=== PATIENT | male | born 1965 | race Caucasian/White ===

== ENCOUNTER 2017-06-02 15:37 | Emergency (ER) | payer OTHER ==
[~2017-06-02] VITALS: Ht 172.7 cm; Wt 75.7 kg
[2017-06-02] MEDS ORDERED: GABAPENTIN TAB600 MG PO (15:47)
[2017-06-02] MEDS ORDERED: IBUPROFEN600 MG PO (15:48)
[2017-06-02] MEDS ORDERED: CYMBALTA60 MG PO (15:48)
[2017-06-02] MEDS ORDERED: HUMALOG KW200 UNIT/1 SQ (15:49)
[2017-06-02] MEDS ORDERED: HUMALOG100 UNIT/1 SQ (15:50)
[2017-06-02] MEDS ORDERED: LIPITOR20 MG PO (15:50)
[2017-06-02] MEDS ORDERED: PANTOPRAZOLE SO40 MG PO (15:51)
[2017-06-02] MEDS ORDERED: [UNRECOGNIZED DRUG - OTHER] PO (15:52)
[2017-06-02] MEDS ORDERED: NAPROSYN500 MG PO (15:59)
[2017-06-02] MEDS ORDERED: 'PARAFON FORTE500 M1 PO (15:59)
== END 2017-06-02 17:20 | disposition home or self-care (01) ==
LOC: ED 15:37
DX: M54.6 Pain in thoracic spine (principal); R03.0 Elevated blood-pressure reading, without diagnosis of hypertension; F17.200 Nicotine dependence, unspecified, uncomplicated; Z79.899 Other long term (current) drug therapy

== ENCOUNTER 2018-09-23 10:25 | Inpatient (IN) | payer MEDICARE, OTHER ==
[~2018-09-23] VITALS: Ht 172.7 cm; Wt 75.4 kg
--- NOTE | ~2018-09-23 | O ---
[place], [place] OPERATIVE NOTE NAME: [facility]: [id number] UNIT #: [id number] ROOM: 415 DOCTOR: ANNELIESE FISH DO BIRTHDATE: [birth year] DOS: PREPROCEDURE DIAGNOSIS: Right proximal calf abscess. POSTPROCEDURE DIAGNOSIS: Right proximal calf abscess. OPERATIVE PROCEDURE: Incision, drainage, debridement of right proximal calf abscess. SURGEON: Anneliese Fish DO. WATCHSTANDER: Hossein. ANESTHESIA: SUGAR Valentine, general with LMA intubation. INDICATIONS: The patient is a 53-year-old male who underwent a coronary artery bypass graft procedure in 03/2018. The veins were harvested from the legs. The right lower extremity suffered a compartment syndrome. The patient underwent fasciotomies. Approximately 2 weeks ago, the patient developed pain and swelling in the right proximal calf. He was treated at another facility with a drain placed under ultrasound guidance and followed by IV and p.o. antibiotics. The patient states he was progressing well, stepped off a curb, felt a pop in the calf, developed pain and swelling in the proximal calf. MRI indicated no specific tear in the gastrocs or Achilles region. Aspiration under ultrasound indicated a purulent appearing material with a negative Gram stain, negative, culture. The patient continued to have pain. We discussed incision, drainage, debridement and repeat cultures. Preoperative labs and x-rays were obtained. DESCRIPTION OF PROCEDURE: The right proximal calf was marked in the holding room. The patient was brought to the operative suite. A general anesthetic with LMA intubation was performed. The patient had a bump placed under the hip and the table tilted for better exposure of the right proximal calf. The right lower extremity was prepped from toes to groin. Tourniquet was applied at the right upper thigh. The extremity was elevated. The tourniquet was applied at 350 mmHg. The extremity was draped in a sterile orthopedic fashion. A 10 cm incision was made over the fluctuant mass in the right proximal calf. Subcutaneous tissue was spread down to the level of the fascia. The fascia was divided. There was noted to be thickened and scarred gastroc muscle. The Arrington scissors were used to open a firm capsule of fluctuance. Approximately 45 mL of a thin brown liquid were suctioned from the area. Some necrotic yellow tissue was also removed. The area was copiously irrigated with 3 liters of normal saline. Exploration of the cavity indicated the pocket was approximately twice the size of the incision. Cultures were obtained of the purulent material. When no further evidence of necrotic or purulent tissue was present, the skin was closed in a vertical mattress suture fashion. A Hector drain was placed. A dressing was used to complete the procedure using Adaptic, 4 x 4s, ABDs, cast padding, and an Rodney bandage from the metatarsal heads to the proximal tibial region. The tourniquet was released. The anesthetic was reversed. The patient was extubated and taken to the recovery room in satisfactory condition. [place], [place] OPERATIVE NOTE NAME: JANETTE CERVANTES UNIT #: [id number] ROOM: [facility] DOCTOR: ANNELIESE FISH DO BIRTHDATE: [birth year] Sponge and needle count correct. ESTIMATED BLOOD LOSS: 10 mL. DRAINS: One Hector drain. PACKING: None. SPECIMENS: Gram stain culture and sensitivity and soft tissue. FINDINGS: Abscess within the lateral head of the gastroc approximately 10 x 15 cm in length. ANNELIESE FISH DO CM:OPRECORD:OPERATIVE NOTE [id number] ANNELIESE FISH DO 09/26/18 1626 interface
--- NOTE | ~2018-09-23 | EKG ---
[place], [place] ELECTROCARDIOGRAM REPORT NAME: JANETTE CERVANTES UNIT #: [id number] ROOM: 415 DOCTOR: MEMO DRAFT REPORT BIRTHDATE: [birth year] [facility] Test Date: 2018-09-25 Test Time: 18:20:01 Pat Name: JANETTE CERVANTES Department: Room: 415 1 Gender: M Side Splitter: Antonia Newsome : 1965 Requested By: ANNELIESE TOURE Order Number: [id number] Reading MD: Lexx Fragoso MD Measurements Intervals [facility] Rate: 86 P: 63 SD: 198 QRS: 59 QRSD: 93 T: -14 QT: 385 QTc: 461 Interpretive Statements Sinus rhythm Probable left atrial enlargement Anteroseptal infarct, age indeterminate Lateral leads are also involved Baseline wander in lead(s) V1,V2 Electronically Signed On 09-26-2018 5:22:52 PST by Lexx Fragoso MD CM:EKGRPT:ELECTROCARDIOGRAM REPORT 19 0522 ANNELIESE DIAMOND DRAFT REPORT ANNELIESE TOURE DO
[2018-09-23 10:25] VITALS: BP 116/76
[~2018-09-23 10:25] MED LIST: 'PARAFON FORTE500 M1 PO; CYMBALTA60 MG PO; GABAPENTIN TAB600 MG PO; HUMALOG KW200 UNIT/1 SQ; HUMALOG100 UNIT/1 SQ; IBUPROFEN600 MG PO; LIPITOR20 MG PO; NAPROSYN500 MG PO; PANTOPRAZOLE SO40 MG PO; [UNRECOGNIZED DRUG - OTHER] PO
[2018-09-23 11:12] LABS: BASO # 0.1 10*3/uL (0.0-0.1); BASO % 1.5 % (0.0-1.0); EOS # 0.1 10*3/uL (0.0-0.4); EOS % 1.9 % (1.0-4.0); HEMATOCRIT 42.7 % (42.0-52.0); LYMPH # 2.1 10*3/uL (1.3-4.4); LYMPH % 40.4 % (27.0-41.0); MEAN CELL VOLUME 89.7 fl (80.0-94.0); MEAN CORPUSCULAR HGB 29.4 pg (27.0-31.0); MEAN CORPUSCULAR HGB CONC 32.8 g/dl (33.0-37.0); MEAN PLATELET VOLUME 9.7 fl (9.6-12.3); MONO # 0.5 10*3/uL (0.1-1.0); MONO % 8.8 % (3.0-9.0); NEUT # 2.5 10*3/uL (2.3-7.9); NEUT % 47.2 % (47.0-73.0); PLATELET COUNT AUTOMATED 291 10*3/uL (130-400); RED BLOOD COUNT 4.76 10*6/uL (4.50-5.90); RED CELL DISTRI WIDTH 13.7 % (0-14.5); WHITE BLOOD COUNT 5.2 10*3/uL (4.8-10.8)
[2018-09-23 11:22] LABS: ACT PARTIAL THROMBO TIME 22.5 SECONDS (20.8-31.5); INTERNATIONAL NORM RATIO 0.9 (2.0-3.5)
[2018-09-23 11:28] LABS: ALBUMIN 3.4 gm/dl (3.1-4.5); ALKALINE PHOSPHATASE 67 U/L (45-117); BUN 5 mg/dl (7-24); CHLORIDE 105 mmol/L (98-107); CREATININE 0.63 mg/dL (0.70-1.30); SGPT/ALT 13 U/L (12-78); SODIUM 139 mmol/L (136-145); TOTAL PROTEIN 6.9 gm/dL (6.4-8.2)
[2018-09-23 11:29] LABS: SGOT/AST < 3 IU/L (3-35)
[2018-09-23 20:00] VITALS: BP 115/70
[2018-09-24] VITALS: BP 138/89
[2018-09-24 07:03] LABS: BASO # 0.1 10*3/uL (0.0-0.1); BASO % 1.5 % (0.0-1.0); EOS # 0.1 10*3/uL (0.0-0.4); EOS % 2.4 % (1.0-4.0); HEMATOCRIT 40.1 % (42.0-52.0); HEMOGLOBIN 12.7 g/dl (14.0-18.0); LYMPH # 3.2 10*3/uL (1.3-4.4); LYMPH % 53.8 % (27.0-41.0); MEAN CELL VOLUME 90.9 fl (80.0-94.0); MEAN CORPUSCULAR HGB 28.8 pg (27.0-31.0); MEAN CORPUSCULAR HGB CONC 31.7 g/dl (33.0-37.0); MONO # 0.5 10*3/uL (0.1-1.0); MONO % 8.3 % (3.0-9.0); NEUT % 33.7 % (47.0-73.0); PLATELET COUNT AUTOMATED 255 10*3/uL (130-400); RED BLOOD COUNT 4.41 10*6/uL (4.50-5.90); RED CELL DISTRI WIDTH 13.3 % (0-14.5); WHITE BLOOD COUNT 5.9 10*3/uL (4.8-10.8)
[2018-09-24 07:21] LABS: ALBUMIN 3.1 gm/dl (3.1-4.5); ALKALINE PHOSPHATASE 55 U/L (45-117); BUN 7 mg/dl (7-24); CHLORIDE 102 mmol/L (98-107); CHOLESTEROL 200 mg/dL (<200); CREATININE 0.68 mg/dL (0.70-1.30); FREE T4 1.09 ng/dl (0.76-1.46); HDL CHOLESTEROL 49 mg/dl (40-60); LDL CHOLESTEROL 101 mg/dL (9-159); PHOSPHOROUS 4.2 mg/dL (2.5-4.9); SGPT/ALT 12 U/L (12-78); SODIUM 138 mmol/L (136-145); TOTAL PROTEIN 6.2 gm/dL (6.4-8.2); TRIGLYCERIDES 252 mg/dl (<150); VLDL CHOLESTEROL 50 mg/dL (6-40)
[2018-09-24 07:22] LABS: ACT PARTIAL THROMBO TIME 23.1 SECONDS (20.8-31.5); INTERNATIONAL NORM RATIO 0.9 (2.0-3.5)
[2018-09-24 07:26] LABS: SGOT/AST < 3 IU/L (3-35)
[2018-09-24 08:00] VITALS: BP 115/75
[2018-09-24 08:31] LABS: VITAMIN D, 25-HYDROXY 20.4 ng/mL (30-100)
[2018-09-24] MEDS ORDERED: NICODERM CQ1 EAC2 TD (10:39)
[2018-09-24] MEDS ORDERED: ENDOCET 5-3251 EACH PO (10:40)
[2018-09-24] MEDS ORDERED: LANTUS SOL100 UNIT/1 SQ (10:40)
[2018-09-24 12:00] VITALS: BP 130/68
[2018-09-24] MEDS ORDERED: CARVEDILOL3.125 MG PO (12:08)
[2018-09-24] MEDS ORDERED: ACETAMINOPHEN325 M2 PO (12:35)
[2018-09-24] MEDS ORDERED: GABAPENTIN800 MG PO (12:36)
[2018-09-24] MEDS ORDERED: ENTRESTO 24 MG1 EACH PO (12:36)
[2018-09-24] MEDS ORDERED: ASPIRIN CHEWABL81 MG PO (12:36)
[2018-09-24] MEDS ORDERED: NOVOLOG10 ML SQ (12:37)
[2018-09-24] MEDS ORDERED: CARAFATE1 G1 PO (12:37)
[2018-09-24 16:00] VITALS: BP 135/78
[2018-09-24 20:00] VITALS: BP 134/84
[2018-09-25] VITALS: BP 126/69
[2018-09-25 05:25] LABS: BASO # 0.1 10*3/uL (0.0-0.1); BASO % 1.3 % (0.0-1.0); EOS # 0.2 10*3/uL (0.0-0.4); EOS % 3.1 % (1.0-4.0); HEMATOCRIT 40.6 % (42.0-52.0); HEMOGLOBIN 13.1 g/dl (14.0-18.0); LYMPH # 2.7 10*3/uL (1.3-4.4); LYMPH % 49.3 % (27.0-41.0); MEAN CELL VOLUME 90.8 fl (80.0-94.0); MEAN CORPUSCULAR HGB 29.3 pg (27.0-31.0); MEAN CORPUSCULAR HGB CONC 32.3 g/dl (33.0-37.0); MEAN PLATELET VOLUME 9.5 fl (9.6-12.3); MONO # 0.5 10*3/uL (0.1-1.0); NEUT % 36.1 % (47.0-73.0); PLATELET COUNT AUTOMATED 237 10*3/uL (130-400); RED BLOOD COUNT 4.47 10*6/uL (4.50-5.90); RED CELL DISTRI WIDTH 13.3 % (0-14.5); WHITE BLOOD COUNT 5.4 10*3/uL (4.8-10.8)
[2018-09-25 08:00] VITALS: BP 111/76
[2018-09-25 12:00] VITALS: BP 107/73
[2018-09-25 14:07] LABS: ACID FAST SPEC PROCESSING Concentration (.)
[2018-09-25 16:00] VITALS: BP 117/70
[2018-09-25 20:00] VITALS: BP 110/70
[2018-09-26] VITALS (12 sets, daily range): BP systolic 100–132; BP diastolic 52–88
[2018-09-26 05:50] LABS: BUN 8 mg/dl (7-24); CHLORIDE 110 mmol/L (98-107); CREATININE 0.64 mg/dL (0.70-1.30); POTASSIUM 3.5 mmol/L (3.5-5.1); SODIUM 144 mmol/L (136-145)
[2018-09-26 05:53] LABS: VANCOMYCIN TROUGH 14.1 ug/mL (10-20)
[2018-09-26 05:56] LABS: BASO # 0.1 10*3/uL (0.0-0.1); BASO % 1.1 % (0.0-1.0); EOS # 0.2 10*3/uL (0.0-0.4); EOS % 3.1 % (1.0-4.0); HEMATOCRIT 39.4 % (42.0-52.0); HEMOGLOBIN 12.5 g/dl (14.0-18.0); LYMPH # 3.9 10*3/uL (1.3-4.4); LYMPH % 52.9 % (27.0-41.0); MEAN CELL VOLUME 89.7 fl (80.0-94.0); MEAN CORPUSCULAR HGB 28.5 pg (27.0-31.0); MEAN CORPUSCULAR HGB CONC 31.7 g/dl (33.0-37.0); MEAN PLATELET VOLUME 9.7 fl (9.6-12.3); MONO # 0.6 10*3/uL (0.1-1.0); MONO % 8.6 % (3.0-9.0); NEUT # 2.5 10*3/uL (2.3-7.9); NEUT % 34.2 % (47.0-73.0); PLATELET COUNT AUTOMATED 260 10*3/uL (130-400); RED BLOOD COUNT 4.39 10*6/uL (4.50-5.90); RED CELL DISTRI WIDTH 13.3 % (0-14.5); WHITE BLOOD COUNT 7.3 10*3/uL (4.8-10.8)
[2018-09-27] VITALS: BP 122/69
[2018-09-27 06:39] LABS: BASO # 0.1 10*3/uL (0.0-0.1); BASO % 0.8 % (0.0-1.0); EOS # 0.1 10*3/uL (0.0-0.4); EOS % 2.1 % (1.0-4.0); HEMATOCRIT 36.7 % (42.0-52.0); HEMOGLOBIN 11.7 g/dl (14.0-18.0); LYMPH # 2.6 10*3/uL (1.3-4.4); LYMPH % 40.4 % (27.0-41.0); MEAN CELL VOLUME 91.5 fl (80.0-94.0); MEAN CORPUSCULAR HGB 29.2 pg (27.0-31.0); MEAN CORPUSCULAR HGB CONC 31.9 g/dl (33.0-37.0); MONO # 0.6 10*3/uL (0.1-1.0); MONO % 9.1 % (3.0-9.0); NEUT % 47.4 % (47.0-73.0); PLATELET COUNT AUTOMATED 211 10*3/uL (130-400); RED BLOOD COUNT 4.01 10*6/uL (4.50-5.90); RED CELL DISTRI WIDTH 13.4 % (0-14.5); WHITE BLOOD COUNT 6.3 10*3/uL (4.8-10.8)
[2018-09-27 06:42] LABS: BUN 9 mg/dl (7-24); CHLORIDE 109 mmol/L (98-107); CREATININE 0.61 mg/dL (0.70-1.30); PHOSPHOROUS 3.7 mg/dL (2.5-4.9); POTASSIUM 3.7 mmol/L (3.5-5.1); SODIUM 141 mmol/L (136-145)
[2018-09-27 08:00] VITALS: BP 126/80
[2018-09-27 12:00] VITALS: BP 134/70
[2018-09-27 16:00] VITALS: BP 144/93
[2018-09-27 20:00] VITALS: BP 151/87
[2018-09-28] VITALS: BP 128/81
[2018-09-28 08:00] VITALS: BP 140/84
[2018-09-28 12:00] VITALS: BP 118/71
[2018-09-28 16:00] VITALS: BP 145/86
[2018-09-28 20:00] VITALS: BP 130/80
[2018-09-29] VITALS: BP 149/81
[2018-09-29 05:54] LABS: BASO # 0.1 10*3/uL (0.0-0.1); BASO % 1.1 % (0.0-1.0); EOS # 0.3 10*3/uL (0.0-0.4); EOS % 4.1 % (1.0-4.0); HEMATOCRIT 36.9 % (42.0-52.0); HEMOGLOBIN 11.8 g/dl (14.0-18.0); LYMPH # 3.1 10*3/uL (1.3-4.4); LYMPH % 50.7 % (27.0-41.0); MEAN CELL VOLUME 90.9 fl (80.0-94.0); MEAN CORPUSCULAR HGB 29.1 pg (27.0-31.0); MEAN PLATELET VOLUME 10.1 fl (9.6-12.3); MONO # 0.6 10*3/uL (0.1-1.0); MONO % 10.5 % (3.0-9.0); NEUT % 33.4 % (47.0-73.0); PLATELET COUNT AUTOMATED 193 10*3/uL (130-400); RED BLOOD COUNT 4.06 10*6/uL (4.50-5.90); RED CELL DISTRI WIDTH 13.3 % (0-14.5); WHITE BLOOD COUNT 6.1 10*3/uL (4.8-10.8)
[2018-09-29 05:55] LABS: BUN 7 mg/dl (7-24); CHLORIDE 108 mmol/L (98-107); CREATININE 0.72 mg/dL (0.70-1.30); POTASSIUM 3.8 mmol/L (3.5-5.1); SODIUM 143 mmol/L (136-145)
[2018-09-29 05:57] LABS: VANCOMYCIN TROUGH 19.9 ug/mL (10-20)
[2018-09-29 08:00] VITALS: BP 135/78
[2018-09-29 12:00] VITALS: BP 132/66
[2018-09-29] MEDS ORDERED: KEFLEX500 M1 PO (12:20)
[2018-09-29] MEDS ORDERED: VITAMIN D32000 UNI1 PO (12:20)
[2018-09-29] MEDS ORDERED: PERCOCET 7.5-31 EACH PO (12:20)
[2018-09-29] MEDS ORDERED: SEPTDS PO (12:20)
== END 2018-09-29 14:14 | disposition home or self-care (01) | DRG 571 ==
LOC: ED 10:25 → EDHOLD 18:12 → 4E 18:12 → EDHOLD 18:21 → 4E 18:37
PROVIDERS: Emergency Medicine; Family Medicine; Internal Medicine; Orthopaedic Surgery; Student in an Organized Health Care Education/Training Program
PROC: 0J9N00Z Drainage of Right Lower Leg Subcutaneous Tissue and Fascia with Drainage Device, Open Approach (ICD-10-PCS; principal; 2018-09-23)
PROC: 0JBN0ZZ Excision of Right Lower Leg Subcutaneous Tissue and Fascia, Open Approach (ICD-10-PCS; principal; 2018-09-23)
PROC: 0H9KXZZ Drainage of Right Lower Leg Skin, External Approach (ICD-10-PCS; 2018-09-24)
DX: L02.415 Cutaneous abscess of right lower limb (principal); F31.10 Bipolar disorder, current episode manic without psychotic features, unspecified; I25.810 Atherosclerosis of coronary artery bypass graft(s) without angina pectoris; E66.3 Overweight; F17.210 Nicotine dependence, cigarettes, uncomplicated; E11.65 Type 2 diabetes mellitus with hyperglycemia; Z79.4 Long term (current) use of insulin; Z90.49 Acquired absence of other specified parts of digestive tract; Z71.6 Tobacco abuse counseling; Z95.1 Presence of aortocoronary bypass graft; Z79.82 Long term (current) use of aspirin

== ENCOUNTER 2018-10-07 12:09 | Inpatient (IN) | payer MEDICARE, OTHER ==
[~2018-10-07] VITALS: Ht 172.7 cm; Wt 74.5 kg
[~2018-10-07 12:09] MED LIST changes: +ACETAMINOPHEN325 M2 PO; +ASPIRIN CHEWABL81 MG PO; +CARAFATE1 G1 PO; +CARVEDILOL3.125 MG PO; +ENDOCET 5-3251 EACH PO; +ENTRESTO 24 MG1 EACH PO; +GABAPENTIN800 MG PO; +KEFLEX500 M1 PO; +LANTUS SOL100 UNIT/1 SQ; +NICODERM CQ1 EAC2 TD; +NOVOLOG10 ML SQ; +PERCOCET 7.5-31 EACH PO; +SEPTDS PO; +VITAMIN D32000 UNI1 PO
[2018-10-07 12:14] VITALS: BP 135/89
[2018-10-07 13:10] VITALS: BP 123/79
[2018-10-07 15:31] VITALS: BP 110/76
[2018-10-07 17:20] LABS: BASO # 0.1 10*3/uL (0.0-0.1); BASO % 1.2 % (0.0-1.0); EOS # 0.2 10*3/uL (0.0-0.4); EOS % 3.6 % (1.0-4.0); HEMATOCRIT 41.1 % (42.0-52.0); HEMOGLOBIN 13.7 g/dl (14.0-18.0); LYMPH # 3.2 10*3/uL (1.3-4.4); MEAN CELL VOLUME 88.8 fl (80.0-94.0); MEAN CORPUSCULAR HGB 29.6 pg (27.0-31.0); MEAN CORPUSCULAR HGB CONC 33.3 g/dl (33.0-37.0); MEAN PLATELET VOLUME 9.6 fl (9.6-12.3); MONO # 0.5 10*3/uL (0.1-1.0); MONO % 8.1 % (3.0-9.0); NEUT # 2.6 10*3/uL (2.3-7.9); NEUT % 38.8 % (47.0-73.0); PLATELET COUNT AUTOMATED 272 10*3/uL (130-400); RED BLOOD COUNT 4.63 10*6/uL (4.50-5.90); RED CELL DISTRI WIDTH 13.1 % (0-14.5); WHITE BLOOD COUNT 6.7 10*3/uL (4.8-10.8)
[2018-10-07 17:38] LABS: ALBUMIN 3.7 gm/dl (3.1-4.5); ALKALINE PHOSPHATASE 68 U/L (45-117); BUN 12 mg/dl (7-24); CHLORIDE 105 mmol/L (98-107); CREATININE 0.84 mg/dL (0.70-1.30); POTASSIUM 4.1 mmol/L (3.5-5.1); SGOT/AST 5 IU/L (3-35); SGPT/ALT 13 U/L (12-78); SODIUM 138 mmol/L (136-145); TOTAL PROTEIN 7.4 gm/dL (6.4-8.2)
[2018-10-07 20:18] VITALS: BP 129/83
[2018-10-07 20:22] VITALS: BP 122/73
[2018-10-08] VITALS (8 sets, daily range): BP systolic 90–133; BP diastolic 60–80
[2018-10-08 06:23] LABS: BASO # 0.1 10*3/uL (0.0-0.1); BASO % 1.7 % (0.0-1.0); EOS # 0.3 10*3/uL (0.0-0.4); EOS % 3.8 % (1.0-4.0); HEMATOCRIT 40.6 % (42.0-52.0); HEMOGLOBIN 13.2 g/dl (14.0-18.0); LYMPH # 3.6 10*3/uL (1.3-4.4); LYMPH % 54.5 % (27.0-41.0); MEAN CELL VOLUME 89.6 fl (80.0-94.0); MEAN CORPUSCULAR HGB 29.1 pg (27.0-31.0); MEAN CORPUSCULAR HGB CONC 32.5 g/dl (33.0-37.0); MONO # 0.5 10*3/uL (0.1-1.0); MONO % 7.9 % (3.0-9.0); NEUT # 2.1 10*3/uL (2.3-7.9); NEUT % 31.8 % (47.0-73.0); PLATELET COUNT AUTOMATED 261 10*3/uL (130-400); RED BLOOD COUNT 4.53 10*6/uL (4.50-5.90); WHITE BLOOD COUNT 6.6 10*3/uL (4.8-10.8)
[2018-10-08 06:30] LABS: BUN 14 mg/dl (7-24); CHLORIDE 103 mmol/L (98-107); CREATININE 0.67 mg/dL (0.70-1.30); PHOSPHOROUS 4.5 mg/dL (2.5-4.9); POTASSIUM 3.9 mmol/L (3.5-5.1); SODIUM 138 mmol/L (136-145)
[2018-10-08 06:41] LABS: ACT PARTIAL THROMBO TIME 22.4 SECONDS (20.8-31.5); INTERNATIONAL NORM RATIO 0.9 (2.0-3.5)
[2018-10-09] VITALS: BP 144/80
[2018-10-09 05:48] LABS: BUN 10 mg/dl (7-24); CHLORIDE 103 mmol/L (98-107); CREATININE 0.71 mg/dL (0.70-1.30); POTASSIUM 3.5 mmol/L (3.5-5.1); SODIUM 142 mmol/L (136-145)
[2018-10-09 06:09] LABS: BASO # 0.1 10*3/uL (0.0-0.1); BASO % 0.8 % (0.0-1.0); EOS # 0.2 10*3/uL (0.0-0.4); EOS % 3.1 % (1.0-4.0); HEMATOCRIT 40.8 % (42.0-52.0); HEMOGLOBIN 13.2 g/dl (14.0-18.0); LYMPH # 3.4 10*3/uL (1.3-4.4); LYMPH % 52.2 % (27.0-41.0); MEAN CELL VOLUME 90.9 fl (80.0-94.0); MEAN CORPUSCULAR HGB 29.4 pg (27.0-31.0); MEAN CORPUSCULAR HGB CONC 32.4 g/dl (33.0-37.0); MEAN PLATELET VOLUME 9.9 fl (9.6-12.3); MONO # 0.6 10*3/uL (0.1-1.0); NEUT # 2.2 10*3/uL (2.3-7.9); NEUT % 34.7 % (47.0-73.0); PLATELET COUNT AUTOMATED 281 10*3/uL (130-400); RED BLOOD COUNT 4.49 10*6/uL (4.50-5.90); RED CELL DISTRI WIDTH 12.9 % (0-14.5); WHITE BLOOD COUNT 6.5 10*3/uL (4.8-10.8)
[2018-10-09 08:00] VITALS: BP 116/68
[2018-10-09 12:00] VITALS: BP 121/59
[2018-10-09 16:00] VITALS: BP 113/71
[2018-10-09 20:00] VITALS: BP 115/72
[2018-10-10] VITALS: BP 105/41; BP 137/86
[2018-10-10 06:35] LABS: BASO # 0.1 10*3/uL (0.0-0.1); BASO % 1.3 % (0.0-1.0); EOS # 0.4 10*3/uL (0.0-0.4); EOS % 6.4 % (1.0-4.0); HEMATOCRIT 39.9 % (42.0-52.0); LYMPH # 2.6 10*3/uL (1.3-4.4); LYMPH % 47.1 % (27.0-41.0); MEAN CELL VOLUME 88.9 fl (80.0-94.0); MEAN CORPUSCULAR HGB CONC 32.6 g/dl (33.0-37.0); MEAN PLATELET VOLUME 9.4 fl (9.6-12.3); MONO # 0.5 10*3/uL (0.1-1.0); MONO % 9.9 % (3.0-9.0); NEUT # 1.9 10*3/uL (2.3-7.9); NEUT % 35.1 % (47.0-73.0); PLATELET COUNT AUTOMATED 279 10*3/uL (130-400); RED BLOOD COUNT 4.49 10*6/uL (4.50-5.90); RED CELL DISTRI WIDTH 12.8 % (0-14.5); WHITE BLOOD COUNT 5.4 10*3/uL (4.8-10.8)
[2018-10-10 07:08] LABS: ALBUMIN 2.9 gm/dl (3.1-4.5); ALKALINE PHOSPHATASE 54 U/L (45-117); BUN 6 mg/dl (7-24); CHLORIDE 108 mmol/L (98-107); CREATININE 0.65 mg/dL (0.70-1.30); POTASSIUM 3.8 mmol/L (3.5-5.1); SGOT/AST 4 IU/L (3-35); SGPT/ALT 12 U/L (12-78); SODIUM 142 mmol/L (136-145); TOTAL PROTEIN 6.5 gm/dL (6.4-8.2)
[2018-10-10 08:00] VITALS: BP 103/63
[2018-10-10] MEDS ORDERED: SEPTDS PO (12:01)
[2018-10-10] MEDS ORDERED: KEFLEX500 M1 PO (12:01)
[2018-10-10] MEDS ORDERED: PERCOCET 7.5-31 EACH PO (12:37)
== END 2018-10-10 12:55 | disposition home or self-care (01) | DRG 501 ==
LOC: ED 12:09 → EDHOLD 18:57 → 4E 18:57
PROVIDERS: Emergency Medicine; Internal Medicine; Student in an Organized Health Care Education/Training Program
PROC: 0J9N0ZZ Drainage of Right Lower Leg Subcutaneous Tissue and Fascia, Open Approach (ICD-10-PCS; principal; 2018-10-08)
DX: M62.89 Other specified disorders of muscle (principal); L02.415 Cutaneous abscess of right lower limb; M79.A9 Nontraumatic compartment syndrome of other sites; M60.009 Infective myositis, unspecified site; D64.9 Anemia, unspecified; F31.9 Bipolar disorder, unspecified; E78.5 Hyperlipidemia, unspecified; I11.0 Hypertensive heart disease with heart failure; I50.9 Heart failure, unspecified; R00.0 Tachycardia, unspecified; I25.10 Atherosclerotic heart disease of native coronary artery without angina pectoris; E55.9 Vitamin D deficiency, unspecified; I25.2 Old myocardial infarction; Z79.82 Long term (current) use of aspirin; Z79.4 Long term (current) use of insulin; Z79.899 Other long term (current) drug therapy; Z95.1 Presence of aortocoronary bypass graft; Z90.49 Acquired absence of other specified parts of digestive tract; Z71.6 Tobacco abuse counseling; Z72.0 Tobacco use; E11.8 Type 2 diabetes mellitus with unspecified complications

== ENCOUNTER → 2018-10-15 | Outpatient (CLI) | payer MEDICARE, OTHER ==
[2018-10-15 10:06] LABS: BUN 12 mg/dl (7-24); CHLORIDE 103 mmol/L (98-107); POTASSIUM 4.6 mmol/L (3.5-5.1); SODIUM 139 mmol/L (136-145)
== END | disposition home or self-care (01) ==
LOC: WOUNDCARE 08:30 → LAB 08:30 → WOUNDCARE 10-17 13:32
DX: M62.89 Other specified disorders of muscle (principal)

== ENCOUNTER 2018-10-22 15:23 | Emergency (ER) | payer MEDICARE, OTHER ==
[~2018-10-22] VITALS: Ht 172.7 cm; Wt 78.0 kg
[2018-10-22 15:57] LABS: BASO # 0.1 10*3/uL (0.0-0.1); EOS # 0.1 10*3/uL (0.0-0.4); EOS % 1.6 % (1.0-4.0); HEMATOCRIT 41.4 % (42.0-52.0); HEMOGLOBIN 13.5 g/dl (14.0-18.0); LYMPH # 2.9 10*3/uL (1.3-4.4); LYMPH % 39.8 % (27.0-41.0); MEAN CELL VOLUME 90.2 fl (80.0-94.0); MEAN CORPUSCULAR HGB 29.4 pg (27.0-31.0); MEAN CORPUSCULAR HGB CONC 32.6 g/dl (33.0-37.0); MEAN PLATELET VOLUME 9.4 fl (9.6-12.3); MONO # 0.6 10*3/uL (0.1-1.0); MONO % 8.3 % (3.0-9.0); NEUT # 3.6 10*3/uL (2.3-7.9); NEUT % 49.2 % (47.0-73.0); PLATELET COUNT AUTOMATED 263 10*3/uL (130-400); RED BLOOD COUNT 4.59 10*6/uL (4.50-5.90); RED CELL DISTRI WIDTH 12.8 % (0-14.5); WHITE BLOOD COUNT 7.3 10*3/uL (4.8-10.8)
[2018-10-22 16:06] LABS: ACT PARTIAL THROMBO TIME 21.9 SECONDS (20.8-31.5); INTERNATIONAL NORM RATIO 0.9 (2.0-3.5)
[2018-10-22 16:12] LABS: ALBUMIN 3.7 gm/dl (3.1-4.5); ALKALINE PHOSPHATASE 72 U/L (45-117); BUN 6 mg/dl (7-24); CHLORIDE 102 mmol/L (98-107); CREATININE 0.75 mg/dL (0.70-1.30); POTASSIUM 4.2 mmol/L (3.5-5.1); SGPT/ALT 14 U/L (12-78); SODIUM 138 mmol/L (136-145); TOTAL PROTEIN 7.4 gm/dL (6.4-8.2)
[2018-10-22 16:23] LABS: SGOT/AST < 3 IU/L (3-35)
== END 2018-10-22 18:13 | disposition home or self-care (01) ==
LOC: ED 15:23
PROVIDERS: Physician Assistant
DX: M79.604 Pain in right leg (principal); R19.7 Diarrhea, unspecified; R11.2 Nausea with vomiting, unspecified; I25.2 Old myocardial infarction; F17.200 Nicotine dependence, unspecified, uncomplicated; Z79.82 Long term (current) use of aspirin; Z95.1 Presence of aortocoronary bypass graft; Z90.49 Acquired absence of other specified parts of digestive tract; Z79.899 Other long term (current) drug therapy; Z79.2 Long term (current) use of antibiotics

== ENCOUNTER → 2018-10-29 | Outpatient (CLI) | payer MEDICARE, OTHER | END | disposition home or self-care (01) | LOC: WOUNDCARE 04:56 | DX: L02.415 Cutaneous abscess of right lower limb (principal); E11.9 Type 2 diabetes mellitus without complications; I50.9 Heart failure, unspecified; E78.5 Hyperlipidemia, unspecified; F31.9 Bipolar disorder, unspecified; F17.290 Nicotine dependence, other tobacco product, uncomplicated ==

== ENCOUNTER 2018-11-24 14:02 | Emergency (ER) | payer MEDICARE, OTHER ==
[~2018-11-24] VITALS: Ht 172.7 cm; Wt 78.0 kg
== END 2018-11-24 15:00 | disposition home or self-care (01) ==
LOC: ED 14:02
DX: G89.29 Other chronic pain (principal); M79.2 Neuralgia and neuritis, unspecified; M21.371 Foot drop, right foot; I25.10 Atherosclerotic heart disease of native coronary artery without angina pectoris; E11.9 Type 2 diabetes mellitus without complications; I50.9 Heart failure, unspecified; F17.200 Nicotine dependence, unspecified, uncomplicated; Z79.82 Long term (current) use of aspirin

== ENCOUNTER 2018-12-26 07:36 | Emergency (ER) | payer MEDICARE, OTHER ==
[~2018-12-26] VITALS: Ht 170.1 cm; Wt 78.9 kg
[2018-12-26] MEDS ORDERED: TYLENOL EXTRA500 M2 PO (08:13)
[2018-12-26] MEDS ORDERED: CELECOXIB200 M1 PO (08:20)
[2018-12-26] MEDS ORDERED: MUCINEX DM 30/61 TAB PO (08:47)
[2019-06-01] MEDS ORDERED: ATORVASTATIN CA80 M1 PO (20:07)
[2019-06-01] MEDS ORDERED: BACLOFEN5 MG PO (20:08)
[2019-06-01] MEDS ORDERED: GABAPENTIN400 MG PO (20:08)
[2019-06-01] MEDS ORDERED: PANTOPRAZOLE SO20 MG PO (20:09)
[2019-06-01] MEDS ORDERED: PROVENTIL HFA6.7 GM INH (20:11)
[2019-06-03] MEDS ORDERED: HYDROCODONE-AC1 EAC1 PO (10:14)
[2019-06-03] MEDS ORDERED: PREDNISONE10 MG PO (10:14)
[2019-06-03] MEDS ORDERED: FLUCONAZOLE100 MG PO (10:14)
[2019-06-03] MEDS ORDERED: ZITHROMAX500 MG PO (10:14)
== END 2018-12-26 09:04 | disposition home or self-care (01) ==
LOC: ED 07:36
DX: G89.29 Other chronic pain (principal); E11.42 Type 2 diabetes mellitus with diabetic polyneuropathy; I25.10 Atherosclerotic heart disease of native coronary artery without angina pectoris; I50.9 Heart failure, unspecified; F17.200 Nicotine dependence, unspecified, uncomplicated; Z79.82 Long term (current) use of aspirin; Z79.4 Long term (current) use of insulin; Z95.1 Presence of aortocoronary bypass graft

== ENCOUNTER 2019-01-20 17:39 | Emergency (ER) | payer MEDICARE, OTHER ==
[~2019-01-20] VITALS: Ht 172.7 cm; Wt 83.5 kg
--- NOTE | ~2019-01-20 | EKG ---
[place], [place] ELECTROCARDIOGRAM REPORT NAME: JANETTE CERVANTES UNIT #: [id number] ROOM: DOCTOR: EPIPHANY DRAFT REPORT BIRTHDATE: [birth year] [facility] Test Date: 2019-01-20 Test Time: 18:08:56 Pat Name: JANETTE CERVANTES Department: Room: Gender: Resource Room Special Education Teacher: Elizabeth Murray : 1965 Requested By: STEVEN LIMON Order Number: [id number] Reading MD: xAel Gomez MD Measurements Intervals [place] Rate: 92 P: 105 LA: 216 QRS: 89 QRSD: 96 T: 100 QT: 388 QTc: 481 Interpretive Statements Sinus rhythm Prolonged LA interval Anteroseptal infarct, old Nonspecific T abnormalities, lateral leads Baseline wander in lead(s) V1 Compared to ECG 09/25/2018 18:20:01 First degree AV block now present T-wave abnormality now present Myocardial infarct finding still present Electronically Signed On 01-24-2019 13:52:00 PDT by Axel Gomez MD CM:EKGRPT:ELECTROCARDIOGRAM REPORT [id number] STEVEN LIMON EPIPHANY DRAFT REPORT STEVEN LIMON
[~2019-01-20 17:39] MED LIST changes: +CELECOXIB200 M1 PO; +MUCINEX DM 30/61 TAB PO; +TYLENOL EXTRA500 M2 PO
[2019-01-20 18:26] LABS: BASO # 0.1 10*3/uL (0.0-0.1); EOS # 0.1 10*3/uL (0.0-0.4); EOS % 1.7 % (1.0-4.0); HEMATOCRIT 45.2 % (42.0-52.0); HEMOGLOBIN 14.7 g/dl (14.0-18.0); LYMPH # 3.1 10*3/uL (1.3-4.4); LYMPH % 37.7 % (27.0-41.0); MEAN CELL VOLUME 92.2 fl (80.0-94.0); MEAN CORPUSCULAR HGB CONC 32.5 g/dl (33.0-37.0); MEAN PLATELET VOLUME 10.4 fl (9.6-12.3); MONO # 0.7 10*3/uL (0.1-1.0); MONO % 7.9 % (3.0-9.0); NEUT # 4.3 10*3/uL (2.3-7.9); NEUT % 51.5 % (47.0-73.0); PLATELET COUNT AUTOMATED 233 10*3/uL (130-400); RED CELL DISTRI WIDTH 13.9 % (0-14.5); WHITE BLOOD COUNT 8.3 10*3/uL (4.8-10.8)
[2019-01-20 18:44] LABS: ACT PARTIAL THROMBO TIME 21.6 SECONDS (20.8-31.5); INTERNATIONAL NORM RATIO 0.9 (2.0-3.5)
[2019-01-20 18:48] LABS: ALBUMIN 3.9 gm/dl (3.1-4.5); ALKALINE PHOSPHATASE 78 U/L (45-117); BUN 12 mg/dl (7-24); CHLORIDE 101 mmol/L (98-107); CREATININE 0.79 mg/dL (0.70-1.30); LIPASE 104 U/L (73-393); POTASSIUM 3.8 mmol/L (3.5-5.1); SGOT/AST 3 IU/L (3-35); SGPT/ALT 18 U/L (12-78); SODIUM 135 mmol/L (136-145); TOTAL PROTEIN 7.3 gm/dL (6.4-8.2)
[2019-01-20 18:52] LABS: TROPONIN I < 0.015 ng/ml (<0.045)
[2019-01-20] MEDS ORDERED: TESSALON PERLE100 M1 PO (19:52)
[2019-01-20] MEDS ORDERED: ZITHROMAX250 MG PO (19:52)
[2019-01-20] MEDS ORDERED: NAPROSYN500 MG PO (19:52)
[2019-06-01] MEDS ORDERED: ATORVASTATIN CA80 M1 PO (20:07)
[2019-06-01] MEDS ORDERED: BACLOFEN5 MG PO (20:08)
[2019-06-01] MEDS ORDERED: GABAPENTIN400 MG PO (20:08)
[2019-06-01] MEDS ORDERED: PANTOPRAZOLE SO20 MG PO (20:09)
[2019-06-01] MEDS ORDERED: PROVENTIL HFA6.7 GM INH (20:11)
[2019-06-03] MEDS ORDERED: FLUCONAZOLE100 MG PO (10:14)
[2019-06-03] MEDS ORDERED: ZITHROMAX500 MG PO (10:14)
[2019-06-03] MEDS ORDERED: HYDROCODONE-AC1 EAC1 PO (10:14)
[2019-06-03] MEDS ORDERED: PREDNISONE10 MG PO (10:14)
== END 2019-01-20 20:35 | disposition home or self-care (01) ==
LOC: ED 17:39
PROVIDERS: Nurse Practitioner Family
DX: J06.9 Acute upper respiratory infection, unspecified (principal); J44.9 Chronic obstructive pulmonary disease, unspecified; I25.10 Atherosclerotic heart disease of native coronary artery without angina pectoris; E11.9 Type 2 diabetes mellitus without complications; R79.1 Abnormal coagulation profile; F17.200 Nicotine dependence, unspecified, uncomplicated; Z79.899 Other long term (current) drug therapy; Z79.82 Long term (current) use of aspirin; Z79.4 Long term (current) use of insulin

== ENCOUNTER 2020-02-24 14:00 | Emergency (ER) | payer MEDICARE, OTHER ==
[~2020-02-24] VITALS: Ht 170.1 cm; Wt 79.8 kg
[~2020-02-24 14:00] MED LIST changes: +ATORVASTATIN CA80 M1 PO; +BACLOFEN5 MG PO; +FLUCONAZOLE100 MG PO; +GABAPENTIN400 MG PO; +HYDROCODONE-AC1 EAC1 PO; +PANTOPRAZOLE SO20 MG PO; +PREDNISONE10 MG PO; +PROVENTIL HFA6.7 GM INH; +TESSALON PERLE100 M1 PO; +ZITHROMAX250 MG PO; +ZITHROMAX500 MG PO
== END 2020-02-24 16:13 | disposition home or self-care (01) ==
LOC: ED 14:00
DX: S90.31XA Contusion of right foot, initial encounter (principal); I10 Essential (primary) hypertension; E11.9 Type 2 diabetes mellitus without complications; G89.29 Other chronic pain; F17.200 Nicotine dependence, unspecified, uncomplicated; W22.09XA Striking against other stationary object, initial encounter; Y93.01 Activity, walking, marching and hiking; Y92.098 Other place in other non-institutional residence as the place of occurrence of the external cause; Y99.8 Other external cause status; Z79.899 Other long term (current) drug therapy; Z79.2 Long term (current) use of antibiotics; Z79.82 Long term (current) use of aspirin; Z79.4 Long term (current) use of insulin; Z90.49 Acquired absence of other specified parts of digestive tract

== ENCOUNTER 2020-10-13 14:14 | Emergency (ER) | payer OTHER ==
[2020-10-13 16:22] LABS: BASO % 0.2 % (0.0-1.0); EOS # 0.1 10*3/uL (0.0-0.4); LYMPH # 1.5 10*3/uL (1.3-4.4); LYMPH % 11.1 % (27.0-41.0); MEAN CELL VOLUME 92.1 fl (80.0-94.0); MEAN CORPUSCULAR HGB 29.6 pg (27.0-31.0); MEAN CORPUSCULAR HGB CONC 32.2 g/dl (33.0-37.0); MEAN PLATELET VOLUME 9.6 fl (9.6-12.3); MONO # 0.9 10*3/uL (0.1-1.0); MONO % 6.7 % (3.0-9.0); NEUT % 80.6 % (47.0-73.0); PLATELET COUNT AUTOMATED 281 10*3/uL (130-400); RED BLOOD COUNT 5.54 10*6/uL (4.50-5.90); RED CELL DISTRI WIDTH 12.9 % (0-14.5); WHITE BLOOD COUNT 13.7 10*3/uL (4.8-10.8)
[2020-10-13 16:32] LABS: INTERNATIONAL NORM RATIO 0.9 (2.0-3.5)
[2020-10-13 16:36] LABS: ALBUMIN 3.9 gm/dl (3.1-4.5); ALKALINE PHOSPHATASE 62 U/L (45-117); BUN 10 mg/dl (7-24); CHLORIDE 104 mmol/L (98-107); CREATININE 0.81 mg/dL (0.70-1.30); LIPASE 39 U/L (73-393); POTASSIUM 4.9 mmol/L (3.5-5.1); SGOT/AST 6 IU/L (3-35); SGPT/ALT 22 U/L (12-78); SODIUM 139 mmol/L (136-145); TOTAL PROTEIN 8.1 gm/dL (6.4-8.2)
[2020-10-13 16:37] LABS: ETHYL ALCOHOL < 3.0 mg/dl (<3)
[2020-10-13 16:53] LABS: BILIRUBIN Negative (Negative); BLOOD Negative (Negative); CLARITY Clear (Clear); COLOR Yellow (Yellow); GLUCOSE Negative (Negative); KETONE Trace (Negative); LEUKO ESTERASE Negative (Negative); NITRITE Negative (Negative); UROBILINOGEN 0.2 E.U./dl (0.0-1.0)
[2020-10-13 16:56] LABS: URINE AMPHETAMINES < 1000 (1000ng/ml); URINE BARBITURATES < 200 (200ng/ml); URINE BENZODIAZEPINES < 200 (200ng/ml); URINE CANNABINOIDS (THC) > 50 (50ng/ml); URINE COCAINE < 300 (300ng/ml); URINE METHADONE < 300 (300ng/ml); URINE OPIATES < 300 (300ng/ml)
[2020-10-13 17:00] LABS: URINE PHENCYCLIDINE < 25 (25ng/ml)
[2020-10-13 17:09] LABS: EPITHELIAL CELLS 0-2; WBC 0-2 wbc/hpf (0-5)
== END 2020-10-13 18:04 | disposition left against medical advice (07) ==
LOC: ED 14:14
PROVIDERS: Emergency Medicine
DX: M79.604 Pain in right leg (principal); G89.29 Other chronic pain; R11.10 Vomiting, unspecified; J44.9 Chronic obstructive pulmonary disease, unspecified; I25.10 Atherosclerotic heart disease of native coronary artery without angina pectoris; E11.9 Type 2 diabetes mellitus without complications; E78.5 Hyperlipidemia, unspecified; F31.9 Bipolar disorder, unspecified; Z79.899 Other long term (current) drug therapy; Z79.4 Long term (current) use of insulin

== ENCOUNTER 2021-07-02 18:32 | Emergency (ER) | payer OTHER ==
[~2021-07-02] VITALS: Wt 78.5 kg
== END 2021-07-02 23:15 | disposition home or self-care (01) ==
LOC: ED 18:32
DX: S80.211A Abrasion, right knee, initial encounter (principal); E78.5 Hyperlipidemia, unspecified; I25.10 Atherosclerotic heart disease of native coronary artery without angina pectoris; F17.200 Nicotine dependence, unspecified, uncomplicated; Z79.899 Other long term (current) drug therapy; X58.XXXA Exposure to other specified factors, initial encounter; Y93.89 Activity, other specified; Y92.89 Other specified places as the place of occurrence of the external cause; Y99.8 Other external cause status

== ENCOUNTER 2021-07-16 13:19 | Emergency (ER) | payer OTHER ==
[~2021-07-16] VITALS: Ht 170.1 cm; Wt 78.5 kg
[2021-07-16] MEDS ORDERED: HYDROCODONE-AC1 EAC1 PO (15:12)
== END 2021-07-16 15:29 | disposition home or self-care (01) ==
LOC: ED 13:19
DX: S83.92XA Sprain of unspecified site of left knee, initial encounter (principal); F17.210 Nicotine dependence, cigarettes, uncomplicated; Z79.899 Other long term (current) drug therapy; Z79.82 Long term (current) use of aspirin; V84.9XXA Unspecified occupant of special agricultural vehicle injured in nontraffic accident, initial encounter; Y93.89 Activity, other specified; Y92.89 Other specified places as the place of occurrence of the external cause; Y99.0 Civilian activity done for income or pay

== ENCOUNTER → 2021-07-20 | Outpatient (CLI) | payer OTHER ==
[~2021-07-20] MED LIST changes: +ULTRAM50 MG PO
== END | disposition home or self-care (01) ==
LOC: MRI 13:43
PROVIDERS: ATTEND Orthopaedic Surgery
DX: S83.512A Sprain of anterior cruciate ligament of left knee, initial encounter (principal); S83.412A Sprain of medial collateral ligament of left knee, initial encounter; S87.82XA Crushing injury of left lower leg, initial encounter; M70.52 Other bursitis of knee, left knee; X58.XXXA Exposure to other specified factors, initial encounter; Y93.89 Activity, other specified; Y92.89 Other specified places as the place of occurrence of the external cause; Y99.8 Other external cause status

== ENCOUNTER 2021-08-03 14:34 | Emergency (ER) | payer OTHER ==
[~2021-08-03] VITALS: Ht 170.1 cm; Wt 78.0 kg
[~2021-08-03 14:34] MED LIST changes: -ULTRAM50 MG PO
[2021-08-04] MEDS ORDERED: ULTRAM50 MG PO (12:45)
== END 2021-08-03 22:59 | disposition left against medical advice (07) ==
LOC: ED 14:34
DX: M25.562 Pain in left knee (principal); Z53.21 Procedure and treatment not carried out due to patient leaving prior to being seen by health care provider

== ENCOUNTER 2021-08-04 10:00 | Emergency (ER) | payer OTHER ==
[~2021-08-04] VITALS: Ht 171.4 cm; Wt 78.0 kg
[2021-08-04] MEDS ORDERED: ULTRAM50 MG PO (12:45)
== END 2021-08-04 12:59 | disposition home or self-care (01) ==
LOC: ED 10:00
DX: S82.832A Other fracture of upper and lower end of left fibula, initial encounter for closed fracture (principal); I25.10 Atherosclerotic heart disease of native coronary artery without angina pectoris; J44.9 Chronic obstructive pulmonary disease, unspecified; E11.9 Type 2 diabetes mellitus without complications; F17.210 Nicotine dependence, cigarettes, uncomplicated; Z79.899 Other long term (current) drug therapy; Z79.82 Long term (current) use of aspirin; X50.1XXA Overexertion from prolonged static or awkward postures, initial encounter; Y93.89 Activity, other specified; Y92.89 Other specified places as the place of occurrence of the external cause; Y99.8 Other external cause status

== ENCOUNTER → 2021-12-06 | Outpatient (CLI) | payer OTHER ==
[~2021-12-06] MED LIST changes: +ULTRAM50 MG PO
== END | disposition home or self-care (01) ==
LOC: COVID19 16:06
PROVIDERS: ATTEND Internal Medicine
DX: U07.1 COVID-19 (principal)

== ENCOUNTER 2022-04-20 11:53 | Emergency (ER) | payer OTHER ==
[~2022-04-20] VITALS: Ht 172.7 cm; Wt 79.8 kg
[2022-04-20 12:44] LABS: BASO % 0.6 % (0.0-1.0); EOS # 0.1 10*3/uL (0.0-0.4); EOS % 1.1 % (1.0-4.0); HEMATOCRIT 47.2 % (42.0-52.0); LYMPH % 15.9 % (27.0-41.0); MEAN CELL VOLUME 89.9 fl (80.0-94.0); MEAN CORPUSCULAR HGB CONC 34.5 g/dl (33.0-37.0); MEAN PLATELET VOLUME 9.8 fl (9.6-12.3); MONO # 0.2 10*3/uL (0.1-1.0); MONO % 3.5 % (3.0-9.0); NEUT # 5.1 10*3/uL (2.3-7.9); NEUT % 78.4 % (47.0-73.0); PLATELET COUNT AUTOMATED 217 10*3/uL (130-400); RED BLOOD COUNT 5.25 10*6/uL (4.50-5.90); RED CELL DISTRI WIDTH 12.5 % (0-14.5); WHITE BLOOD COUNT 6.5 10*3/uL (4.8-10.8)
[2022-04-20 13:02] LABS: ALKALINE PHOSPHATASE 63 U/L (45-117); BUN 8 mg/dl (7-24); CHLORIDE 104 mmol/L (98-107); CREATININE 0.68 mg/dL (0.70-1.30); POTASSIUM 3.6 mmol/L (3.5-5.1); SGPT/ALT 19 U/L (12-78); SODIUM 136 mmol/L (136-145); TOTAL PROTEIN 6.8 gm/dL (6.4-8.2)
[2022-04-20 13:10] LABS: SGOT/AST < 3 IU/L (3-35)
[2022-04-20] MEDS ORDERED: PERCOCET 5-3251 EACH PO (15:54)
[2022-04-20] MEDS ORDERED: DOXYCYCLINE HY100 M3 PO (15:54)
== END 2022-04-20 16:25 | disposition home or self-care (01) ==
LOC: ED 11:53
PROVIDERS: Family Medicine
DX: J18.9 Pneumonia, unspecified organism (principal); M79.671 Pain in right foot; M79.672 Pain in left foot; Z79.899 Other long term (current) drug therapy; Z79.82 Long term (current) use of aspirin; Z90.49 Acquired absence of other specified parts of digestive tract; Z98.890 Other specified postprocedural states; F17.210 Nicotine dependence, cigarettes, uncomplicated